=== PATIENT | male | born 2000 | race Caucasian/White ===

== ENCOUNTER 2021-11-11 14:36 | Emergency (ER) | payer MEDICAID, SELFPAY ==
[2021-11-11 15:40] VITALS: BP 120/60; PULSE 69; RESP 18; TEMP 36.1; O2SAT 97; BMI 21.2
--- NOTE | 2021-11-11 16:56 | ED_ITS ---
HPI - Ear Problem General Chief complaint: Ear Problems Stated complaint: Earring back stuck in ear Time Seen by Provider: 11/11/21 14:46 Source: patient and family (Significant other at bedside) Mode of arrival: ambulatory Limitations: no limitations History of Present Illness Complaint: foreign body (To right ear lobe) Duration: constant Severity: moderate Relieving factors: nothing Exacerbating factors: palpation Context: other (He recently had a piercing to his bilateral ears) Discharge from ear: yes - purulent (From the earlobe) Treatment prior to arrival: other (Attempted to remove the earring from his ear lobe) Related Data Previous Rx's Medication Instructions Recorded cephalexin 500 mg capsule 500 mg PO Q6H 10 Days #40 cap 11/11/21 doxycycline monohydrate 100 mg 100 mg PO BID 10 Days #20 cap 11/11/21 capsule ibuprofen 800 mg tablet 800 mg PO Q8H PRN #14 tab 11/11/21 Allergies Allergy/AdvReac Type Severity Reaction Status Date / Time No Known Allergies [NKA] Allergy Unknown NONE Verified 11/11/21 15:43 Review of Systems Review of Systems: Constitutional : No Weight loss, No Fever, No Chills, No Night Sweats, No Fatigue, No Malaise ENT/Mouth : No Hearing loss, No Ear Pain, No Nasal Congestion, No Sinus Pain, No Hoarseness, No sore throat, No Rhinorrhea, No Swallowing Difficulty Eyes: No Eye Pain, No Swelling, No Redness, No Foreign Body, No Discharge, No Vision Changes Cardiovascular : No Chest Pain, No SOB, No Dyspnea on Exertion, No Orthopnea, No Edema, No Palpitations Respiratory : No Cough, No Sputum, No Wheezing, No Smoke Exposure, No Dyspnea Gastrointestinal : No Nausea, No Vomiting, No Diarrhea, No Constipation, No abdominal Pain, No Hematochezia, No Melena Genitourinary : no irregular bleeding, No Dysuria, No Urinary Frequency, No Hematuria, No Urinary Incontinence, No Urgency, No Flank Pain, No Urinary Flow Changes, No Hesitancy Musculoskeletal : No joint pain, No Myalgias, No Joint Swelling Skin : + abscess to right ear lobe c earring stuck as foreign body, No additional Skin Lesions, No rash Neuro : No Weakness, No Numbness, No Paresthesias, No Loss of Consciousness, No Dizziness, No Headache Psych : No Anxiety/Panic, No Depression, No SI/HI/AH/VH, No Social Issues, Heme/Lymph: No Bruising, No Bleeding,No Lymphadenopathy Endocrine : No Polyuria, No Polydipsia, No Temperature Intolerance Yes all other systems are reviewed and are negative [facility] Past Medical History Attestation statement: The following information was validated with the patient. Medical History No known health problems Social History Social History Advance Directives: No Advance Directives Information Provided: No Physical Exam Vital Signs: Vital Signs: Last Vital Signs Temp 97.0 F 11/11/21 15:40 Pulse 69 11/11/21 15:40 Resp 18 11/11/21 15:40 BP 120/60 11/11/21 15:40 Pulse Ox 97 11/11/21 15:40 BMI result Body Mass Index 21.2 vital signs have been reviewed as normal and appeared to be correct. Blood pressure normal Heart rate normal. Respiration rate normal. Temperature normal. Oxygen saturation normal. Appearance: Alert. Oriented X3. No acute distress. Head: Normal external exam. Normocephalic. Atraumatic. Eyes: PERRLA. EOMI. Conjunctiva and sclera normal. Eyelids normal. ENT: To right ear lobe patient has gold colored hearing in place and the back pieces imbedded into the posterior aspect of the earlobe he does have soft tissue swelling and erythema with fluctuance with mild purulent drainage. He is also noted to have a keloid. Otherwise no additional abnormalities to the right ear lobe. Pharynx normal. Uvula midline. Moist mucous membranes. Neck: Normal inspection. Neck supple. FROM. CVS: Normal heart rate and rhythm. Respiratory: No respiratory distress. Painless inspiration. Skin: Skin warm and dry. Normal skin color. Normal skin turgor. No rashes/lesions/lacerations noted. Extremities: No lower extremity edema. Extremities exhibit normal range of motion. Extremities nontender. Neuro: Oriented X 3. No motor deficit. No sensory deficit. Reflexes normal. Normal steady gait. No focal neuro deficits noted. Vascular: + radial pulses/+ 2 distal pedal pulses/+2 dorsalis pedis b/l. Normal cap refill. No cyanosis noted to upper extremity nails and lower extremity toe s nails. Course Course Course Narrative: Patient now status post foreign bodies of right earlobe removed. Patient tolerated procedure well. No complications. Purulent drainage was excreted. Will DC home with antibiotics and symptomatic treatment instructions return if any new or worsening symptoms to follow up with primary care provider. Patient understands agrees with this plan. Procedures Foreign Body Removal Time Out Performed: yes Site: right and ear (Lobe) Description of foreign body: other (Gold medal colored earring) Sedation/Analgesia: none Technique: removal with forceps, incision made to facilitate removal and irrigation Confirmed by:: direct visualization and palpation Complications: none Post-procedure exam: awake, alert, normal BP, normal HR and normal O2 sat Neurovascular: normal distal pulse, normal capillary fill, distal light touch sensation intact, distal motor function normal, no signs of compartment syndrome, no change from pre-procedure and other (Patient tolerated procedure well no complications) Discharge Plan Discharge Clinical Impression: Foreign body of right ear lobe, Abscess of earlobe Patient Disposition: Home, Self-Care Instructions: Soft Tissue Foreign Body (ED) Prescriptions: New cephalexin 500 mg capsule 500 mg PO Q6H 10 Days Qty: 40 0RF doxycycline monohydrate 100 mg capsule 100 mg PO BID 10 Days Qty: 20 0RF ibuprofen 800 mg tablet 800 mg PO Q8H PRN (Reason: pain) Qty: 14 0RF Referrals: Physician,None [Primary Care Provider] - 2 days (your pcp) Stand Alone Forms: Work/School Release
== END 2021-11-11 17:09 | disposition home or self-care (01) ==
PROVIDERS: Emergency Provider Emergency Medicine
DX: T16.1XXA Foreign body in right ear, initial encounter (principal); X58.XXXA Exposure to other specified factors, initial encounter; Y93.9 Activity, unspecified; Y92.9 Unspecified place or not applicable; Y99.9 Unspecified external cause status
CPT/HCPCS: 10120; 99283; 99284